=== PATIENT | female | born 1990 | race Caucasian/White ===

== ENCOUNTER 2021-06-03 20:35 | Emergency (ER) | payer BC ==
[~2021-06-03] VITALS: Ht 162.6 cm; Wt 72.6 kg
--- NOTE | 2021-06-03 20:50 | NUR ---
Came in to ER c/o constipation x 5 days. To room 2B.
--- NOTE | 2021-06-03 21:00 | NUR ---
Ambulated to the BR; as per patient she had a small BM but unable to void.
[2021-06-03 21:30] LABS: HEMATOCRIT 40.3 % (31.2-41.9); MEAN CORPUSCULAR HEMOGLOBIN 28.9 uug (24.7-32.8); MEAN CORPUSCULAR VOLUME 84.4 fL (75.5-95.3); PLATELET COUNT (AUTO) 382 K/uL (179-408)
[2021-06-03 21:35] LABS: CREATININE 0.7 mg/dL (0.6-1.3); POTASSIUM 3.9 mmol/L (3.5-5.1)
[2021-06-03 21:40] LABS: BILIRUBIN,DIRECT 0.1 mg/dL (0.0-0.2); BILIRUBIN,TOTAL 0.5 mg/dL (0.2-1.0); TOTAL PROTEIN, SERUM 7.9 g/dL (6.4-8.2)
[2021-06-03] MEDS ORDERED: LACT10SO3 PO (21:58)
--- NOTE | 2021-06-03 22:00 | NUR ---
Dr. Giron discussed results of labs and DC instructions with patient. Patient verbalized understanding.
[2021-06-03 22:03] VITALS: BP 110/80
--- NOTE | 2021-06-03 22:03 | NUR ---
Patient discharged to home in stable condition. Written and verbal after care instructions given. Patient verbalizes understanding of instructions. Stressed follow up or return to ER for worsening s/s.
== END 2021-06-03 22:05 | disposition home or self-care (01) ==
LOC: ER 20:45
DX: R10.9 Unspecified abdominal pain (principal); K59.00 Constipation, unspecified
CPT/HCPCS: 36415; 83690; 85025; A4663